=== PATIENT | male | born 1950 | race Caucasian/White ===

== ENCOUNTER 2019-09-08 16:45 | Emergency (ER) | payer OTHER ==
[2019-09-08 17:48] VITALS: BP 185/90; PULSE 71; TEMP 97.1; BMI 26.4
--- NOTE | 2019-09-08 18:21 | PDOC ---
Documentation entered by Concetta Gallo SCRIBE, acting as scribe for Meggan Nava MD. Meggan Nava MD: This documentation has been prepared by the Cleo whipple Xhesika, SCRIBE, under my direction and personally reviewed by me in its entirety. I confirm that the documentation accurately reflects all work, treatment, procedures, and medical decision making performed by me. Attending Attestation - Resident Resident Name: Anderson Garcia - ED Attending Attestation I have performed the following: I have examined & evaluated the patient, The case was reviewed & discussed with the resident, I agree w/resident's findings & plan, Exceptions are as noted - HPI HPI: 09/08/19 20:01 this 69 yo male is IDDM and became hypoglycemia and fell and had a scalp laceration - Physicial Exam PE: 09/08/19 20:[address] Anderson Garcia 's physical exam - Medical Decision Making 09/08/19 20:03 This 69-year-old male who is brought in by ambulance after for injury sustained following a hypoglycemic episode. He is insulin dependent diabetic. He refused all treatment except [id number] glucose He refused CAT scan of the head His was present at the time we had discussions about the risks and consequences of refusing an imaging study to see if he did have an acute intracranial pathology including a subdural bleed or skull fracture Patient refused all care and just wanted to go home and left before signing AMA
--- NOTE | 2019-09-08 18:26 | PDOC ---
History of Present Illness - General Chief Complaint: Blood Sugar Problem Stated Complaint: BLOOD SUGAR Time Seen by Provider: 09/08/19 17:33 History Source: Patient, Significant Other - History of Present Illness Initial Comments: 09/10/19 10:35 69M w/hx IDDM p/w syncope and hypoglycemia at work today. He reports that while at work he began to feel acutely lightheaded and fell out of his chair. He reports being told that he hit his head on the ground but does not recall the event. One of his coworkers checked his blood sugar at that time and it was found to be in the 50s. He reports being given something for his blood sugar, which he believes was dextrose, and EMS was called. He reports feeling better at this time and denies any symptoms. He reports that he will not eat food at this time as he does not have his insulin with him. He denies any weakness, lightheadedness, chest pain, shortness of breath, confusion, fatigue. Past History - Past Medical History Allergies/Adverse Reactions: Allergies Allergy/AdvReac Type Severity Reaction Status Date / Time No Known Allergies Allergy Verified 09/08/19 17:47 COPD: No Diabetes: Yes (insulini dependent) - Psycho Social/Smoking Cessation Hx Smoking History: Never smoked Have you smoked in the past 12 months: No Information on smoking cessation initiated: No Hx Alcohol Use: No Drug/Substance Use Hx: No Review of Systems - Review of Systems Able to Perform ROS?: Yes Comments:: 09/10/19 10:38 ROS: GENERAL/CONSTITUTIONAL: No fever or chills. No weakness. HEAD, EYES, EARS, NOSE AND THROAT: No change in vision. No ear pain or discharge. No sore throat. CARDIOVASCULAR: No chest pain or shortness of breath RESPIRATORY: No cough, wheezing, or hemoptysis. GASTROINTESTINAL: No nausea, vomiting, diarrhea or constipation. GENITOURINARY: No dysuria, frequency, or change in urination. MUSCULOSKELETAL: No joint or muscle swelling or pain. No neck or back pain. SKIN: No rash NEUROLOGIC: No headache, vertigo, loss of consciousness, or change in strength/ sensation. ENDOCRINE: No increased thirst. No abnormal weight change HEMATOLOGIC/LYMPHATIC: No anemia, easy bleeding, or history of blood clots. ALLERGIC/IMMUNOLOGIC: No hives or skin allergy. *Physical Exam - Vital Signs Last Vital Signs Temp Pulse Resp BP Pulse Ox 97.1 F L 71 16 185/90 H 98 09/08/19 16:45 09/08/19 16:45 09/08/19 16:45 09/08/19 16:45 09/08/19 16:45 - Physical Exam 09/10/19 10:38 PE: GENERAL: Awake, alert, and fully oriented, in no acute distress HEAD: No signs of trauma, normocephalic, atraumatic EYES: PERRLA, EOMI, sclera anicteric, conjunctiva clear ENT: Auricles normal inspection, hearing grossly normal, nares patent, oropharynx clear without exudates. Moist mucosa NECK: Normal ROM, supple, no lymphadenopathy, JVD, or masses LUNGS: No distress, speaks full sentences, clear to auscultation bilaterally HEART: Regular rate and rhythm, normal S1 and S2, no murmurs, rubs or gallops, peripheral pulses normal and equal bilaterally. ABDOMEN: Soft, nontender, normoactive bowel sounds. No guarding, no rebound. No masses EXTREMITIES : Normal inspection, Normal range of motion, no edema. No clubbing or cyanosis NEUROLOGICAL: Cranial nerves II through XII grossly intact. Normal speech, normal gait, no focal sensorimotor deficits SKIN: Warm, Dry, normal turgor, no rashes or lesions noted ED Treatment Course - ADDITIONAL ORDERS Additional order review: Laboratory Results 09/08/19 09/08/19 18:13 17:07 POC Glucometer 92 129 09/08/19 09/08/19 18:13 17:07 POC Glucometer 92 129 - RADIOLOGY Radiology Studies Ordered: Category Date Time Status HEAD CT WITHOUT CONTRAST [CT] Stat CT Scan 09/08/19 18:05 Ordered Medical Decision Making - Medical Decision Making 69M w/hx T1DM p/w hypoglycemia, syncope while at work most concerning for insulin overdose, infectious etiology of blood sugar derangement. Head injury with laceration concerning for possible ICH. Plan: POC glucometry repeat (120 at triage) CBC CMP Troponin CT Head CXR EKG Dispo: Pending labs, imaging. --- Repeat POC glucose - 90 --- 09/08/19 18:22 Mr. Lechuga eloped before blood draws or head CT. Discussed extensively concerns regarding risk of hypoglycemia given dropping blood sugar, as well as risks of missing head bleed by deferring CT. Discussed signs of hypoglycemia including weakness, confusion, seizure. Mr. Lechuga refused further food intake or blood draws as he feels well at this time. During discussion he became agitated and eloped. Discharge - Discharge Information Problems reviewed: Yes Clinical Impression/Diagnosis: Hypoglycemia, Eloped from emergency department Condition: Guarded Disposition: ELOPED - Admission No - Follow up/Referral Referrals: Kirk Costa MD [Primary Care Provider] - - Patient Discharge Instructions Patient Printed Discharge Instructions: DI for Hyperglycemia -- Adult - Post Discharge Activity
--- NOTE | 2019-09-09 12:36 | EKG ---
Test Reason : Blood Pressure : / mmHG Vent. Rate : 068 BPM Atrial Rate : 068 BPM P-R Int : 140 ms QRS Dur : 096 ms QT Int : 454 ms P-R-T Axes : 079 -33 059 degrees QTc Int : 482 ms NORMAL SINUS RHYTHM LEFT AXIS DEVIATION INFERIOR INFARCT , AGE UNDETERMINED CANNOT RULE OUT ANTERIOR INFARCT , AGE UNDETERMINED ABNORMAL ECG NO PREVIOUS ECGS AVAILABLE Confirmed by MARIFER CATHERINE, EDWARDO ([id number]) on 09/09/2019 12:35:56 PM Referred By: Confirmed By:EDWARDO CAICEDO MD
== END 2019-09-08 18:33 | disposition left against medical advice (07) ==
LOC: JER 16:45
DX: E16.2 Hypoglycemia, unspecified (principal)
CPT/HCPCS: 82962; 93005; 93010; 99283-25